=== PATIENT | female | born 1960 | race Hispanic/Latino ===

== ENCOUNTER 2023-08-21 09:54 | Outpatient (CLI) | payer OTHER, SELFPAY ==
--- NOTE | ~2023-08-21 | NM_ITS ---
EXAMINATION: NM marlee stress w perfusion DATE: 08/21/2023 13:47 INDICATION: Dyspnea TECHNIQUE: Rest images were obtained following intravenous administration of 9.7 mCi Tc99m tetrofosmi n (Myoview). The patient was infused intravenously with Lexiscan (Regadenoson). Then, 30.2 mCi Tc99m tetrofosmin (Myoview) was administered intravenously, and stress images were obtained in both the sup ine and prone position. Data was reconstructed into short axis and horizontal and vertical long axis SPECT images. Gated SPECT images were also obtained. COMPARISON: None. FINDINGS: No perfusion defects on the prone post stress imaging to suggest ischemia or infarct. There is normal left ventricular chamber size, wall motion and ejection fraction. Left ventricular ejecti on fraction measures >70%. IMPRESSION: 1. Normal myocardial perfusion at rest and during stress. 2. Left ventricular ejection fraction measuring >70%. Reviewed, dictated and finalized at location A.
--- NOTE | 2023-08-21 10:12 | EST_ITS ---
Patient Info Name: Cara Pretty Age: 63 years : 1960 Gender: Female Ht: 61 in Wt: 185 lbs BSA: 1.94 m2 HR: 62 bpm BP: 109 / 60 mmHg Heart Rhythm: Sinus Rhythm Exam Date: 08/21/2023 11:03 AM Exam Location: [facility] Stress Patient Status: Outpatient Admit Date: 08/21/2023 Staff Ordering Physician: Yo Charles DO Attending Provider: Yo Charles DO Exercise Technologist: Clare Mike CT Exercise Physician: Yo Charles DO Exam Type: CA stress marlee w NM Study Info Indications R06.09 - Other forms of dyspnea A regadenoson stress test was performed. Summary 1. 1. Negative lexiscan stress test for ischemic ST changes by ECG criteria. 2. 2. Stable hemodynamics throughout the test. 3. 3. Nuclear scan to follow and will be reported separately. Please correlate with it. 4. 4. Patient informed of the above results. Protocol: Lexiscan Stress ECG Details Stage: REST Duration (min): 0 min : 58 sec HR (bpm): 62 SBP (mmHg): 109 DBP (mmHg): 60 Stage: REST Duration (min): 11 min : 2 sec HR (bpm): 65 SBP (mmHg): 109 DBP (mmHg): 60 Stage: STAGE 1 Duration (min): 0 min : 59 sec HR (bpm): 73 SBP (mmHg): 109 DBP (mmHg): 76 Stage: RECOVERY Duration (min): 1 min : 0 sec HR (bpm): 81 SBP (mmHg): 109 DBP (mmHg): 76 Stage: RECOVERY Duration (min): 2 min : 0 sec HR (bpm): 78 SBP (mmHg): 109 DBP (mmHg): 76 Stage: RECOVERY Duration (min): 3 min : 0 sec HR (bpm): 78 SBP (mmHg): 128 DBP (mmHg): 66 Stage: RECOVERY Duration (min): 3 min : 42 sec HR (bpm): 80 SBP (mmHg): 128 DBP (mmHg): 66 Rest HR: 65 bpm Peak HR: 81 bpm Rest Sys BP: 109 mmHg Peak Sys BP: 128 mmHg Max Pred HR: 159 bpm % Max Pred HR: 51 % Target HR: 135 bpm Max RPP: 10,368 bpm*mmHg Termination Reason: Completed protocol Cardiac Symptoms: Shortness of breath Total Time: 1 min : 0 sec Rest Ruggiero BP: 60 mmHg Peak Ruggiero BP: 66 mmHg Total Dose: 0.4 mg Resting ECG Sinus rhythm, anterior infarct, consider inferior infarct, age indeterminate. Stress ECG No ST changes. Arrhythmias None. Report Signatures
== END 2023-08-21 09:55 | disposition home or self-care (01) ==
LOC: ANHCARD 09:58
PROVIDERS: PCP Registered Nurse; Visit Provider Internal Medicine Cardiovascular Disease
DX: R06.09 Other forms of dyspnea (principal)
CPT/HCPCS: 78452; 93017; A9502; J2785

== ENCOUNTER 2023-12-25 13:08 | Emergency (ER) | payer OTHER, SELFPAY ==
--- NOTE | ~2023-12-25 | XR_ITS ---
Clinical Indication: Chest pain PA and lateral views of the chest: Comparison: None Findings: The lungs are clear, without evidence of focal consolidation or pleural effusion. Cardiome diastinal silhouette is within normal limits. Bones and soft tissues are unremarkable. EMERGENCY MAN shunt prese nt. Impression: Clear lungs. EMERGENCY MAN shunt. Reviewed, dictated and finalized at location . CH PATHOLOGY SUPERVISOR Impression: Clear lungs. EMERGENCY MAN shunt.
--- NOTE | 2023-12-25 13:14 | ECG_ITS ---
Measurements Intervals [place] Rate: 104 P: 56 VT: 156 QRS: -20 QRSD: 78 T: 45 QT: 322 QTc: 424 Interpretive Statements SINUS TACHYCARDIA POSSIBLE LEFT ATRIAL ENLARGEMENT [-0.1mV P WAVE IN V1/V2] LOW QRS VOLTAGE IN PRECORDIAL LEADS [QRS DEFLECTION < 1.0 mV IN CHEST LEADS] INFERIOR MYOCARDIAL INFARCTION , PROBABLY OLD [40+ ms Q WAVE AND/OR ST/T ABNORMALITY IN II/aVF] NO PREVIOUS ECG AVAILABLE FOR COMPARISON Electronically Signed On 12-25-2023 15:49:52 GREEN TIRE INSPECTOR by Kendal Salvador M.D.
[2023-12-25 13:26] VITALS: BP 157/55; PULSE 103; RESP 16; TEMP 37.6; O2SAT 95
[2023-12-25 13:34] LABS: Basophils Percent Auto 0.3 % (0.2-1.2); Eosinophils Absolute Auto 0.1 K/mm3 (0-0.3); Eosinophils Percent Auto 0.8 % (0-4.4); Hemoglobin 12.5 g/dL (12.0-15.0); Immature Granulocyte Absolute 0.01 K/mm3 (0.00-0.031); Immature Granulocyte Percent A 0.2 % (0-0.5); Lymphocytes Percent Auto 7.8 % (18.3-44.2); Mean Corpuscular HGB Conc 32.1 g/dl (32-36); Mean Corpuscular Hemoglobin 30.6 pg (26-34); Mean Corpuscular Volume 95.6 fl (80-100); Mean Platelet Volume 9.4 fl (7.4-10.4); Monocytes Absolute Auto 0.5 K/mm3 (0.1-0.6); Neutrophils Absolute Auto 5.4 K/mm3 (1.3-6.7); Neutrophils Percent Auto 83.9 % (45.5-73.1); Platelet Count Result 195 k/mm3 (150-375); Red Blood Count 4.08 M/mm3 (4.2-5.4); Red Cell Distribution Width 12.6 % (11.5-14.5); White Blood Count 6.4 K/mm3 (4.5-10.0)
[2023-12-25 13:43] LABS: Alanine Aminotransferase 55 U/L (6-35); Albumin Level 4.5 g/dL (3.5-5.1); Alkaline Phosphatase 105 U/L (38-126); Anion Gap 7 mmol/L (8-16); Aspartate Amino Transferase 90 U/L (14-36); Bilirubin,Total 0.3 mg/dL (0.2-1.3); Blood Urea Nitrogen 7 mg/dL (7-17); Calcium 9.1 mg/dL (8.4-10.2); Carbon Dioxide 26 mmol/L (22-30); Chloride 103 mmol/L (98-107); Estimated CRCL calculation 84 ml/min; Estimated Glomerular Filt Rate > 60; Glucose 149 mg/dL (65-110); Lipase 214 U/L (23-300); Potassium 3.9 mmol/L (3.4-5.0); Sodium 136 mmol/L (137-145)
[2023-12-25 13:44] LABS: Prothrombin Time 13.2 Seconds (11.1-14.7)
[2023-12-25 13:45] LABS: Partial Thromboplastin Time 27.4 SECONDS (22.3-36.8)
[2023-12-25 13:55] LABS: Troponin I < 0.012 ng/mL (0.000-0.034)
--- NOTE | 2023-12-25 16:20 | ECG_ITS ---
Measurements Intervals [place] Rate: 107 P: 53 VA: 151 QRS: -23 QRSD: 85 T: 35 QT: 322 QTc: 431 Interpretive Statements SINUS TACHYCARDIA POSSIBLE LEFT ATRIAL ENLARGEMENT [-0.1mV P WAVE IN V1/V2] LOW QRS VOLTAGE IN PRECORDIAL LEADS [QRS DEFLECTION < 1.0 mV IN CHEST LEADS] POSSIBLE ANTERIOR MYOCARDIAL INFARCTION , PROBABLY OLD [30 ms Q WAVE IN V3/V4, OR R < 0.2 mV IN V4] INFERIOR MYOCARDIAL INFARCTION , PROBABLY OLD [40+ ms Q WAVE AND/OR ST/T ABNORMALITY IN II/aVF] COMPARED TO ECG 12/25/2023 13:19:43 NO SIGNIFICANT CHANGES Electronically Signed On 12-26-2023 15:55:58 PACKAGE CHECKER by Kendal Salvador M.D.
--- NOTE | 2023-12-25 16:20 | ED.CHESTPAIN ---
HPI - Chest Pain General Chief Complaint: Chest Pain <Geovanna Francisco PA-C - Last Filed: 12/26/23 11:45> Stated Complaint: flu+, mult. complaints <Geovanna Francisco PA-C - Last Filed: 12/26/23 11:45> Time Seen by Provider: 12/25/23 16:20 <Geovanna Francisco PA-C - Last Filed: 12/26/23 11:45> Focused HPI: This is a 63 year old female that presents to the ER for chest pain, dizziness and myalgias. Also reports cough and fever. Diagnosed with influenza at urgent care and sent to the ER for further evaluation GENERAL: Well-appearing, well-nourished, and in no acute distress. HEAD: Normocephalic, atraumatic. CHEST: Clear to auscultation. ?No respiratory distress. HEART: Regular rate and rhythm.? NEURO: ?Alert and oriented x3. Patient screened in triage and initial orders placed.? ?Additional care and disposition to be based upon?diagnostic testing and treatment. <Geovanna Francisco PA-C - Last Filed: 12/26/23 11:45> History of Present Illness HPI narrative: Patient presents with multiple complaints. She is complaining of myalgias and headache. She has had decreased p.o. intake but no nausea or vomiting. She has also been having a cough without hemoptysis. Symptoms started yesterday and last night she had a fever of 104? F for which she took an antipyretic but not today. Is reported that she went to a [facility] affiliated urgent care in [place] and diagnosed with influenza although unclear if it was influenza a or influenza B. She then reported to the emergency department. It is unclear whether this was prompted by urgent care staff of if she presented on her own. She and her state she came because they were concerned at her sinus tachycardia. She denies any chest pain although she had reported this in triage. Similarly, there was report on triage report that she had had shortness of breath but she denies any shortness of breath. She denies any underlying respiratory conditions though she does states she has a history of diabetes and hypertension. <Coby Cordova MD - Last Filed: 12/26/23 18:38> Related Data Home Medications: Home Medications Medication Instructions Recorded Confirmed albuterol sulfate 90 mcg/actuation 1 inh inhalation Q4H 07/24/23 07/24/23 aerosol inhaler amlodipine 10 mg tablet 10 mg PO DAILY 07/24/23 07/24/23 aspirin 81 mg tablet,delayed 81 mg PO DAILY 07/24/23 07/24/23 release (Adult Aspirin Regimen) atenolol 100 mg tablet 100 mg PO DAILY 07/24/23 07/24/23 cholecalciferol (vitamin D3) 25 25 mcg PO DAILY 07/24/23 07/24/23 mcg (1,000 unit) capsule data transfer cap, glargine,BT 07/24/23 07/24/23 ([place] Pen Cap-Basaglar device) dulaglutide 0.75 mg/0.5 mL 0.75 mg subcut WEEKLY 07/24/23 07/24/23 subcutaneous pen injector (Trulicity) empagliflozin 10 mg tablet 10 mg PO DAILY 07/24/23 07/24/23 (Jardiance) famotidine 40 mg tablet (Pepcid) 40 mg PO DAILY 07/24/23 07/24/23 fluticasone propionate 50 1 spray intranasal DAILY 07/24/23 07/24/23 mcg/actuation nasal spray,suspension (Flonase Allergy Relief) insulin lispro 100 unit/mL 1 sliding scale dose subcut 07/24/23 07/24/23 subcutaneous pen (Admelog SoloStar USEASDIRECTD U-100 Insulin lispro) loratadine 10 mg tablet (Claritin) 10 mg PO DAILY 07/24/23 07/24/23 metformin 1,000 mg tablet 1,000 mg PO BID 07/24/23 07/24/23 multivitamin (Daily Multi-Vitamin 1 tablet PO DAILY 07/24/23 07/24/23 tablet) pravastatin 40 mg tablet 40 mg PO DAILY 07/24/23 07/24/23 <Geovanna Francisco PA-C - Last Filed: 12/26/23 11:45> Allergies/Adverse Reactions: Allergies Allergy/AdvReac Type Severity Reaction Status Date / Time No Known Allergies Allergy Verified 07/24/23 14:10 <Geovanna Francisco PA-C - Last Filed: 12/26/23 11:45> Review of Systems Review of Systems: CONSTITUTIONAL: Reports fever CARDIOVASCULAR: Reports chest pain RESPIRATORY: Reports cough GASTROINTESTINAL: Denies
[2023-12-25 17:15] LABS: Troponin I < 0.012 ng/mL (0.000-0.034)
[2023-12-25] MEDS: SODIUM CHLORIDE 0.9% IV 500 ML 999 ML IV CONT (19:38)
[2023-12-25] MEDS: ACETAMINOPHEN 500 MG TABLET 1000 MG PO (19:39)
[2023-12-25] MEDS: MECLIZINE HCL 25 MG TABLET PO (19:49)
[2023-12-25] MEDS: ONDANSETRON INJ 4 MG/2 ML VIAL IV PUSH (19:49)
[2023-12-25 20:26] VITALS: BP 122/61; PULSE 92; RESP 17; O2SAT 94
[2023-12-25 20:51] VITALS: BP 130/80; PULSE 91; RESP 16; O2SAT 94
== END 2023-12-25 20:52 | disposition home or self-care (01) ==
PROVIDERS: Family Medicine; Emergency Provider Student in an Organized Health Care Education/Training Program; PCP Registered Nurse
DX: J11.1 Influenza due to unidentified influenza virus with other respiratory manifestations (principal); R79.89 Other specified abnormal findings of blood chemistry; R05.9 Cough, unspecified; E78.5 Hyperlipidemia, unspecified; E11.9 Type 2 diabetes mellitus without complications; I10 Essential (primary) hypertension
CPT/HCPCS: 36415; 71046; 80053; 83690; 84484; 85025; 85610; 85730; 93005; 96361; 96374; 99284; A9270; J2405; J7040

== ENCOUNTER 2024-02-18 09:09 | Outpatient (CLI) | payer OTHER, SELFPAY ==
[2024-02-18 10:12] LABS: Alanine Aminotransferase 40 U/L (6-35); Albumin Level 4.3 g/dL (3.5-5.1); Alkaline Phosphatase 106 U/L (38-126); Anion Gap 8 mmol/L (4-12); Aspartate Amino Transferase 40 U/L (14-36); Bilirubin,Total 0.5 mg/dL (0.2-1.3); Blood Urea Nitrogen 15 mg/dL (7-17); Calcium 8.9 mg/dL (8.4-10.2); Carbon Dioxide 21 mmol/L (22-30); Chloride 107 mmol/L (98-107); Cholesterol 253 mg/dL (0-200); Estimated Glomerular Filt Rate > 60; Glucose 232 mg/dL (65-110); HDL Direct 39 mg/dL; Potassium 4.3 mmol/L (3.4-5.0); Sodium 136 mmol/L (137-145); Triglycerides 467 mg/dL (<150)
[2024-02-18 10:24] LABS: LDL Cholesterol Direct 110 mg/dL
== END 2024-02-18 09:10 | disposition home or self-care (01) ==
LOC: ANHLAB 09:11
PROVIDERS: PCP Registered Nurse; Visit Provider Internal Medicine Cardiovascular Disease
DX: E78.5 Hyperlipidemia, unspecified (principal)
CPT/HCPCS: 36415; 80053; 80061

== ENCOUNTER 2024-05-27 08:30 | Outpatient (CLI) | payer OTHER, SELFPAY ==
[2024-05-27 09:17] LABS: Cholesterol 180 mg/dL (0-200); HDL Direct 36 mg/dL; Triglycerides 302 mg/dL (<150)
[2024-05-27 09:27] LABS: LDL Cholesterol Direct 92 mg/dL
== END 2024-05-27 08:31 | disposition home or self-care (01) ==
PROVIDERS: PCP Registered Nurse; Visit Provider Internal Medicine Cardiovascular Disease
DX: E78.5 Hyperlipidemia, unspecified (principal)
CPT/HCPCS: 36415; 80061